=== PATIENT | male | born 1995 | race Caucasian/White ===

== ENCOUNTER 2019-07-31 14:14 | Emergency (ER) | payer OTHER ==
[~2019-07-31] VITALS: Wt 59.0 kg
[2019-07-31 14:48] LABS: HEMOGLOBIN 14.7 g/dl (14.0-18.0); MEAN CELL VOLUME 99.4 fl (80.0-94.0); MEAN CORPUSCULAR HGB 29.8 pg (27.0-31.0); MEAN PLATELET VOLUME 10.1 fl (9.6-12.3); NUCLEATED RED BLOOD CELL 0.1 % (0.0-0.0); PLATELET COUNT AUTOMATED 221 10*3/uL (130-400); RED BLOOD COUNT 4.93 10*6/uL (4.50-5.90); RED CELL DISTRI WIDTH 12.1 % (0-14.5); WHITE BLOOD COUNT 13.8 10*3/uL (4.8-10.8)
[2019-07-31 14:59] LABS: ACT PARTIAL THROMBO TIME 60.6 SECONDS (20.0-32.1); INTERNATIONAL NORM RATIO 1.1 (2.0-3.5)
[2019-07-31 15:05] LABS: ALBUMIN 3.1 gm/dl (3.1-4.5); ALKALINE PHOSPHATASE 86 U/L (45-117); BUN 12 mg/dl (7-24); CHLORIDE 100 mmol/L (98-107); CREATININE 1.43 mg/dL (0.70-1.30); POTASSIUM 3.8 mmol/L (3.5-5.1); SGOT/AST 53 IU/L (3-35); SGPT/ALT 47 U/L (12-78); SODIUM 138 mmol/L (136-145); TOTAL PROTEIN 5.8 gm/dL (6.4-8.2)
[2019-07-31 15:10] LABS: ATYPICAL LYMPHS 2 % (0-0); BASOPHILS 1 % (0-1); TOTAL CELLS COUNTED 100 #CELLS
[2019-07-31 15:11] LABS: PLATELET SUFFICIENCY NORMAL (NORMAL); TROPONIN I 0.104 ng/ml (<0.045)
== END 2019-07-31 15:19 | disposition short-term general hospital (02) ==
LOC: ED 14:14
PROVIDERS: Emergency Medicine
DX: T71.161A Asphyxiation due to hanging, accidental, initial encounter (principal); I49.01 Ventricular fibrillation; Y92.89 Other specified places as the place of occurrence of the external cause